=== PATIENT | female | born 1940 | race Caucasian/White ===

== ENCOUNTER 2018-06-27 16:19 | Outpatient (CLI) | payer MEDICARE, BC ==
--- NOTE | 2018-06-27 16:31 | RAD ---
RIGHT KNEE 2 VIEWS: HISTORY: Pain in the right knee FINDINGS: A high riding patella is present. No fracture, dislocation or bony destruction is seen.
== END 2018-06-27 16:20 | disposition home or self-care (01) ==
LOC: BICRAD 16:19
PROVIDERS: ATTEND Internal Medicine Rheumatology
DX: M25.561 Pain in right knee (principal); M19.042 Primary osteoarthritis, left hand

== ENCOUNTER 2018-06-29 13:12 | Outpatient (CLI) | payer MEDICARE, BC ==
--- NOTE | 2018-06-29 13:47 | BD ---
EXAM: DEXA bone density examination HISTORY: 77-year-old postmenopausal female for screening COMPARISON: None FINDINGS: L1--bone mineral density 0.734 g/sq cm; T score -2.3 L2--bone mineral density 0.749 g/sq cm; T score -2.5 L3--bone mineral density 0.742 g/sq cm; T score -3.1 L4--bone mineral density 0.752 g/sq cm; T score -2.8 Total L1-L4--bone mineral density 0.745 g/sq cm; T score -2.7 Distal one third of the left forearm--bone mineral density0.656; T score -0.6 IMPRESSION: Osteoporosis
== END 2018-06-29 13:13 | disposition home or self-care (01) ==
LOC: BICMAMMO 13:12
PROVIDERS: ATTEND Internal Medicine Rheumatology
DX: M81.0 Age-related osteoporosis without current pathological fracture (principal)
CPT/HCPCS: 77080

== ENCOUNTER 2019-04-27 13:16 | Outpatient (CLI) | payer MEDICARE, BC ==
--- NOTE | 2019-04-27 14:44 | MMO ---
Bilateral MAMMO Bilat Screen [facility]. CLINICAL HISTORY: Patient is 78 years old and is seen for screening. The patient has the following family history of breast cancer: aunt, at age 60. The patient has no personal history of cancer. VIEWS: The views performed were: bilateral craniocaudal with tomosynthesis and bilateral mediolateral oblique with tomosynthesis. FILMS COMPARED: The present examination has been compared to prior imaging studies performed at [facility] on 01/03/2013, 03/07/2014 and 03/17/2015, and at [facility] on 06/23/2010. This study has been interpreted with the assistance of computer-aided detection. MAMMOGRAM FINDINGS: There are scattered fibroglandular densities. Benign calcifications are noted bilaterally. There are no suspicious masses, suspicious calcifications, or new areas of architectural distortion. IMPRESSION: THERE IS NO MAMMOGRAPHIC EVIDENCE OF MALIGNANCY. A ROUTINE FOLLOW-UP MAMMOGRAM IN 1 YEAR IS RECOMMENDED. THE RESULTS OF THIS EXAM WERE SENT TO THE PATIENT. ACR BI-RADS Category 2 - Benign finding MAMMOGRAPHY NOTE: 1. A negative mammogram report should not delay a biopsy if a dominant of clinically suspicious mass is present. 2. Approximately 10% to 15% of breast cancers are not detected by mammography. 3. Adenosis and dense breasts may obscure an underlying neoplasm. Reported by: TEVIN SWANSON MD Electonically Signed: [id number]
== END 2019-04-27 13:17 | disposition home or self-care (01) ==
LOC: BICMAMMO 13:16
PROVIDERS: ATTEND Internal Medicine
DX: Z12.31 Encounter for screening mammogram for malignant neoplasm of breast (principal); Z80.3 Family history of malignant neoplasm of breast
CPT/HCPCS: 77063; 77067

== ENCOUNTER 2019-09-13 10:07 | Outpatient (CLI) | payer MEDICARE, BC ==
--- NOTE | 2019-09-13 11:07 | BD ---
DEXA BONE DENSITOMETRY: (Dual energy x-ray absorptiometry) DATE: 09/13/2019 HISTORY: 78-year old white female for age-related, post-menopausal, osteoporosis screening. weight: 135 lbs height: 66 in. Age of menopause: 4 COMPARISON: 06/29/2018 FINDINGS: The bone mineral density (BMD) is given in grams per square centimeter (g/cm2): LUMBAR SPINE: BMD (g/cm^2) T score Z score L1: 0.778 -1.9 0.4 L2: 0.830 -1.8 0.8 L3: 0.818 -2.4 0.3 L4: 0.802 -2.4 0.5 Total: 0.807 -2.2 0.5 Change in BMD compared to previous DEXA: + 8.3 %. DISTAL FOREARM: BMD (g/cm^2) T score Z score UD: 0.395 -0.8 1.4 MID: 0.506 -1.8 1.2 1/3: 0.641 -0.9 2.2 Total: 0.506 -1.3 1.6 Change in BMD compared to previous DEXA: -2.2 %. IMPRESSION: 1.) The mean bone mineral density of the lumbar spine is osteopenic. Fracture risk is increased. 2) The bone mineral density of the distal forearm is normal. Fracture risk is not increased.
== END 2019-09-13 10:08 | disposition home or self-care (01) ==
LOC: BICMAMMO 10:07
PROVIDERS: ATTEND Internal Medicine Rheumatology
DX: M81.0 Age-related osteoporosis without current pathological fracture (principal); M85.89 Other specified disorders of bone density and structure, multiple sites
CPT/HCPCS: 77080

== ENCOUNTER 2021-10-28 13:48 | Outpatient (CLI) | payer MEDICARE, BC | END 2021-10-28 13:49 | disposition home or self-care (01) | LOC: BICMAMMO 13:48 | PROVIDERS: ATTEND Internal Medicine Rheumatology | DX: M81.0 Age-related osteoporosis without current pathological fracture (principal); M85.89 Other specified disorders of bone density and structure, multiple sites | CPT/HCPCS: 77080 ==